=== PATIENT | female | born 1955 | race African-American/Black ===

== ENCOUNTER 2019-04-17 20:36 | Emergency (ER) | payer OTHER ==
[2019-04-17 21:35] VITALS: BP 136/83; PULSE 96; TEMP 98.4; BMI 34.4
--- NOTE | 2019-04-17 21:59 | PDOC ---
History of Present Illness - General Chief Complaint: Injury Stated Complaint: FALL Time Seen by Provider: 04/17/19 21:59 History Source: Patient, Family - History of Present Illness Initial Comments: 04/17/19 22:54 Chief complaint: Fall Patient is 63-year-old female with a history of rheumatoid arthritis, brain tumor that was treated in the , osteo arthritis, right knee issues, fibromyalgia states she was walking down the stairs, fell down 3 stairs, hit her head on the ground, no LOC but has frontal headache. Also complaining of neck pain. Complaining of left hip and knee pain. Patient was able to bear weight prior to evaluation but has not tried to walk. Patient is not on any anticoagulation and is with her family member, daughter GENERAL/CONSTITUTIONAL: No fever, weakness. dizziness HEAD, EYES, EARS, NOSE AND THROAT: No change in vision. No ear pain or discharge. No sore throat. CARDIOVASCULAR: No chest pain RESPIRATORY: No shortness of breath or cough GASTROINTESTINAL: No pain, nausea, vomiting, diarrhea or constipation GENITOURINARY: No dysuria MUSCULOSKELETAL: No neck or back pain, + neck, left hip, left knee SKIN: No rash NEUROLOGIC: No +headache, no: vertigo, loss of consciousness, or loss of sensation. GENERAL: The patient is awake, alert, and fully oriented, in no acute distress. HEAD: Normal with no signs of trauma. + forehead tenderness EYES: Pupils equal, round and reactive to light, sclera anicteric, conjunctiva clear. ENT: pharynx: no erythema, no exudate, uvula midline NECK: supple CHEST: clear, nontender, rr ABD: soft, nontender EXTREMITIES: + Left knee tenderness, able to flex and extend, some pain to the left hip, able to move, + tenderness lower leg, neurovascular intact. Rest of extremities, Normal range of motion NEUROLOGICAL: Normal speech. Nerves II through XII grossly intact, no gross focal abnormalities SKIN: Warm, Dry Past History - Past Medical History Allergies/Adverse Reactions: Allergies Allergy/AdvReac Type Severity Reaction Status Date / Time No Known Allergies Allergy Verified 04/17/19 21:32 COPD: No - Suicide/Smoking/Psychosocial Hx Smoking History: Never smoked Have you smoked in the past 12 months: No Information on smoking cessation initiated: No Hx Alcohol Use: No Drug/Substance Use Hx: No *Physical Exam - Vital Signs Last Vital Signs Temp Pulse Resp BP Pulse Ox 98.4 F 96 H 18 136/83 98 04/17/19 20:38 04/17/19 20:38 04/17/19 20:38 04/17/19 20:38 04/17/19 20:38 Medical Decision Making - Medical Decision Making 63-year-old with history of rheumatoid arthritis, osteoarthritis, fibromyalgia, who fell down 3 stairs, hitting her head, no LOC but concern regarding headache , has neck pain. Also has left hip and knee and leg pain. Patient was able to bear weight prior to evaluation. During exam patient is able to ambulate with cane with out difficulty. she'll get head CT, cervical spine CT and x-rays of hip and leg. Patient will get Tylenol and be reassessed pt returned from CT, and stated she did not want to get x-rays. As patient is ambulatory, we will cancel x-rays as per patient request. 04/17/19 23:05 case discussed and signed out to dr. valente pending cts. pt's orthopedist is dr. diaz 04/17/19 23:05 *DC/Admit/Observation/Transfer Diagnosis at time of Disposition: Head injury Qualifiers: Encounter type: initial encounter Qualified Code(s): S09.90XA - Unspecified injury of head, initial encounter Contusion Qualifiers: Encounter type: initial encounter Contusion area: knee Laterality: left Qualified Code(s): S80.02XA - Contusion of left knee, initial encounter - Referrals Referrals: Cole Ewing [Primary Care Provider] - - Patient Instructions - Post Discharge Activity
[2019-04-17] MEDS ORDERED: ACETAMINOPHEN 325 MG TABLET (FP) PO ONE (22:11)
[2019-04-17] MEDS ORDERED: ACETAMINOPHEN 325 MG TABLET (FP) ONE (22:13)
--- NOTE | 2019-04-17 23:16 | PDOC ---
*Physical Exam - Vital Signs Last Vital Signs Temp Pulse Resp BP Pulse Ox 98.4 F 96 H 18 136/83 98 04/17/19 20:38 04/17/19 20:38 04/17/19 20:38 04/17/19 20:38 04/17/19 20:38 ED Treatment Course - Medications Given in the ED: ED Medications Discontinued Medications Generic Name Dose Route Start Last Admin Trade Name Christo PRN Reason Stop Dose Admin Acetaminophen 650 mg 04/17/19 22:11 04/17/19 22:14 Tylenol - PO 04/17/19 22:12 650 mg ONCE ONE Administration Medical Decision Making - Medical Decision Making 04/17/19 23:14 Agree with plan as outlined by advanced practice provider Briefly, pt presents to the ED after tripping on her way down the stairs. Pt fell down 3 stairs, struck her head. Denies LOC. Not on AC. Reports head pain, neck pain and knee pain. Pt able to bear weight in the ED. CT scans negative for traumatic pathology. Pt now declining XR of lower extremities, requests DC home. Return precautions given. *DC/Admit/Observation/Transfer Diagnosis at time of Disposition: Head injury Qualifiers: Encounter type: initial encounter Qualified Code(s): S09.90XA - Unspecified injury of head, initial encounter Contusion Qualifiers: Encounter type: initial encounter Contusion area: knee Laterality: left Qualified Code(s): S80.02XA - Contusion of left knee, initial encounter - Referrals Referrals: Cole Ewing [Primary Care Provider] - - Patient Instructions - Post Discharge Activity
== END 2019-04-17 23:19 | disposition home or self-care (01) ==
LOC: JER 20:36 → JERFT 20:36 → JER 23:19
DX: S09.8XXA Other specified injuries of head, initial encounter (principal); S80.02XA Contusion of left knee, initial encounter; W10.8XXA Fall (on) (from) other stairs and steps, initial encounter; Y93.89 Activity, other specified; Y92.038 Other place in apartment as the place of occurrence of the external cause; Y99.8 Other external cause status; M06.80 Other specified rheumatoid arthritis, unspecified site; M19.90 Unspecified osteoarthritis, unspecified site; M79.7 Fibromyalgia
CPT/HCPCS: 70450-TC; 72125-TC; 99281-25